=== PATIENT | male | born 1990 | race Caucasian/White ===

== ENCOUNTER 2020-01-26 23:57 | Emergency (ER) | payer OTHER ==
[~2020-01-26] VITALS: Ht 177.8 cm; Wt 77.3 kg
[2020-01-27 00:03] VITALS: TEMP 98.6
[2020-01-27 00:39] LABS: COLLECTION METHOD CLEAN CATCH
[2020-01-27 00:46] LABS: PH 6 (5-8); SQUAMOUS EPITHELIAL None Seen /hpf; URINE APPEARANCE Clear; URINE BACTERIA None Seen /hpf; URINE BILIRUBIN Negative (NEGATIVE); URINE BLOOD Negative (NEGATIVE); URINE COLOR Yellow; URINE GLUCOSE Negative (NEGATIVE); URINE KETONE Negative (NEGATIVE); URINE LEUKOCYTE ESTERASE Negative (NEGATIVE); URINE NITRATE Negative (NEGATIVE); URINE PROTEIN(semi-quant) Negative (NEGATIVE); URINE RBC 0-2 /hpf; URINE UROBILINOGEN Negative (NEGATIVE)
[2020-01-27 02:27] VITALS: BP 156/88; PULSE 70
== END 2020-01-27 02:40 | disposition home or self-care (01) ==
LOC: COL.ER 23:57
PROVIDERS: Physician Assistant
DX: N50.811 Right testicular pain (principal)
CPT/HCPCS: J0696

== ENCOUNTER → 2020-03-15 | Outpatient (CLI) | payer OTHER | LOC: ZCOL.LAB 08:00 | DX: Z20.828 Contact with and (suspected) exposure to other viral communicable diseases (principal) ==

== ENCOUNTER → 2020-04-21 | Outpatient (CLI) | payer OTHER | LOC: ZCOL.LAB 18:13 | DX: U07.1 COVID-19 (principal) ==